=== PATIENT | male | born 1980 | race Caucasian/White ===

== ENCOUNTER 2018-10-21 00:25 | Emergency (ER) | payer SELFPAY ==
[~2018-10-21] VITALS: Ht 170.2 cm; Wt 73.0 kg
[2018-10-21] MEDS ORDERED: HYDROCODONE/ACETAMINOPHEN 5/325MG TABLET PO ONE (01:45)
[2018-10-21 02:09] VITALS: BP 112/76
== END 2018-10-21 03:04 | disposition home or self-care (01) ==
LOC: ER 00:25
DX: M25.562 Pain in left knee (principal); M54.5 Low back pain; M79.642 Pain in left hand; G89.29 Other chronic pain; Z98.890 Other specified postprocedural states
CPT/HCPCS: 72100; 73130; 73562; 99283